=== PATIENT | female | born 1950 | race Caucasian/White ===

== ENCOUNTER 2023-11-30 10:03 | Outpatient (AMB) | payer MEDICARE, MEDICAID, SELFPAY ==
--- NOTE | 2023-11-30 10:06 | MHC.OFFVIS ---
Intake Visit Reasons: mixed incontinence Intake Note: New Patient presents for initial visit for incontinence Urology Medications: Oxybutynin Blood Thinner: Aspirin PVR: 22ml's House Principal Required: Yes Accompanied by: Unknown Allergies No Known Allergies Allergy (Verified 11/30/23 10:35) HPI Comments Details: Layla is a very pleasant 73-year-old Arabic-speaking female patient of Dr. Mcintosh who was accompanied by her granddaughter at today's office visit. She has a past medical history of obstructive sleep apnea, mild persistent asthma, obesity, hypertension, fibromyalgia, mixed urinary incontinence, and type 2 diabetes. She presents to the office today for longstanding history of mixed urinary incontinence. She reports noting mixed urinary incontinence for many years however feels it has become more bothersome to her. She reports utilizing approximately 1-2 Keena pads per day. When asked she does report having had history of 4 vaginal deliveries of average size babies. She reports labors were short. When asked she denies hematuria, dysuria, foul smelling urine, changes to urinary stream, flank pain, fever, and or chills. She reports trialing oxybutynin with PCP 5 mg daily however has not found this helpful. Discussed at length potential causes of mixed urinary incontinence as well as further treatment options. In office urinalysis results reviewed with the patient today. PVR 22mL. She otherwise offers no other issues or concerns at this time. [facility] Medical History Microhematuria Obstructive sleep apnea Mild persistent asthma, uncomplicated Obesity, unspecified Benign essential HTN Fibromyalgia Mixed incontinence Type 2 diabetes mellitus without complications Review of Systems Eyes Reports no additional complaints ENT Reports no additional complaints Card Reports as per HPI Resp Reports as per HPI GI Reports no additional complaints Reports as per HPI Musc Reports as per HPI Neuro Reports no additional complaints Psych Reports no additional complaints Endo Reports as per HPI Jacob/Lymph Reports no additional complaints Aller/Immun Reports no additional complaints Physical Exam Const General: cooperative, healthy appearing, comfortable, no acute distress, well developed, alert and awake Nutritional Appearance: overweight Orientation/consciousness: patient oriented x3 Limitations: no limitations HEENT Head: Yes normal to inspection, Yes normocephalic and Yes atraumatic Ears: hearing grossly normal bilaterally Eyes General: appearance normal, both eyes and all related structures Neck Neck: Yes normal visual inspection and Yes trachea midline Chest Chest palpation & inspection: normal inspection of the chest Resp Effort & Inspection: normal respiratory effort and able to speak in complete sentences Cardio Rate: regular rate GI Inspection: Yes normal to inspection General: Yes no CVA tenderness Back/Spine/Pelvis Back: no CVA tenderness Skin General skin exam: no rashes or lesions noted Neuro General: patient oriented x3 Extrem General: Yes normal to inspection Psych Appearance: grossly normal and well kempt Mental Status: mental status grossly normal Speech and movement: Normal speech and movement present and Clear speech present Affect: normal affect Attitude: cooperative Thought process: Normal thought process present Thought content: Normal thought content present Insight: Fair insight present (Psych) Judgement: Fair judgement present (Psych) Office Procedures Post Void Residual Post Residual Void Post Void Residual (PVR): [id number] Void Residual by ultrasound Results AMB Urinalysis, Automated UA Leukoctes 0 Rosalinda/uL Last Edit by [employer] on 11/30/23 10:38 UA Nitrite Negative Last Edit by [employer] on 11/30/23 10:38 UA Urobilinogen 0.2 mg/dL Last Edit by [employer] on 11/30/23 10:38 UA Protein 0 mg/dL Last Edit by [employer] on 11/30/23 10:38 UA pH 6.0 Last Edit by [employer] on 11/30/23 10:38 UA Blood 0 Ronal/uL Last Edit by [employer] on 11/30/23 10:38 UA Specific Sells 1.020 Last Edit by [employer] on 11/30/23 10:38 UA Ketone Negative Last Edit by [employer] on 11/30/23 10:38 UA Bilirubin 0 mg/dL Last Edit by [employer] on 11/30/23 10:38 UA Glucose 0 mg/dL Last Edit by [employer] on 11/30/23 10:38 Results Reviewed Results Reviewed: Laboratory Last Values Urine pH (Auto) 6.0 11/30/23 10:37 Specific Sells (Auto) 1.020 11/30/23 10:37 Urine Protein (Auto) 0 mg/dL 11/30/23 10:37 Glucose (UA)(Auto) 0 mg/dL 11/30/23 10:37 Urine Ketones (Auto) Negative 11/30/23 10:37 Urine Blood (Auto) 0 Ronal/uL 11/30/23 10:37 Urine Nitrite (Auto) Negative 11/30/23 10:37 Urine Bilirubin (Auto) 0 mg/dL 11/30/23 10:37 Urine Urobilinogen (Auto) 0.2 mg/dL 11/30/23 10:37 Leukocyte Esterase (Auto) 0 Rosalinda/uL 11/30/23 10:37 Assessment & Plan Assessment & Plan (1) Urinary incontinence, mixed: Code(s): N39.46 - Mixed incontinence Category: Medical Plan In office urinalysis results reviewed with the patient today; as noted above. PVR 22 mL. Discussed at length potential causes of mixed urinary incontinence. Discussed pelvic floor exercises. Stop oxybutynin. Start Myrbetriq as discussed and prescribed. Will obtain retroperitoneal ultrasound for further assessment evaluation. Discussed, educated, and stressed the importance of managing diabetes for improvement in lower urinary tract symptoms as well as overall health and well-being. Discussed possible near future in office cystoscopy and or urodynamics if symptoms persist and/or worsen. Follow-up in 1-3 months with imaging and PVR to be completed prior; or sooner with any issues, concerns, and or questions. Orders: Orders AMB Urinalysis Automated Today Z13.9 - Encounter for screening, unspecified AMB Post Void Residual by ultrasound Today Z13.9 - Encounter for screening, unspecified US retroperitoneal comp Today N39.46 - Mixed incontinence Medications: New mirabegron ER (Myrbetriq) 25 mg PO DAILY 30 days 30 tabs 1RF N30.10 - Interstitial cystitis (chronic) without hematuria, N32.81 - Overactive bladder, R35.1 - Nocturia, R39.15 - Urgency of urination Patient Instructions: The patient had an opportunity to ask questions regarding the treatment plan. All questions were answered. Physical exam, labs, and imaging were discussed and reviewed in detail. As well as risks, benefits, and discussion of treatment choices. No major barriers to understanding were identified. The patient expressed understanding and agreement with the above treatment plan. The patient was made aware they should contact our office by phone for worsening of their current condition, the appearance of new symptoms, or with any questions or concerns. Compliance is encouraged with any medications and follow up testing that is ordered. It is a privilege to be allowed the opportunity to participate in? your urological care.? Again, if you have any questions or concerns If you have any questions or concerns please do not hesitate to contact me. The office is [phone]. This note is constructed using voice recognition software. While every effort has been made to ensure accuracy equipment monitor phototypesetting errors may have been included. Yours sincerely, DEBORA Ponce-JUAREZ Coding Level of Care Code New Pt Level 4 (56451) Diagnoses Urinary incontinence, mixed N39.46 CPT Codes Post Residual Void - PVR CPT Code: 34558-Eqqc Void Residual by ultrasound ([id number])
== END 2023-11-30 10:53 | disposition home or self-care (01) ==
PROVIDERS: PCP Physician Assistant; Visit Provider Nurse Practitioner Family
DX: Z13.9 Encounter for screening, unspecified (principal); N39.46 Mixed incontinence
CPT/HCPCS: 99204

== ENCOUNTER → 2023-11-30 10:03 | Outpatient (BNVA) | payer MEDICARE, MEDICAID, SELFPAY | PROVIDERS: PCP Physician Assistant; Visit Provider Nurse Practitioner Family | DX: N39.46 Mixed incontinence (principal); N30.10 Interstitial cystitis (chronic) without hematuria; N32.81 Overactive bladder; R35.1 Nocturia; Z79.82 Long term (current) use of aspirin; Z79.899 Other long term (current) drug therapy | CPT/HCPCS: 51798; 81003; 99202 ==